=== PATIENT | male | born 1965 | race Caucasian/White ===

== ENCOUNTER 2024-03-02 09:27 | Inpatient (IN) | payer OTHER ==
[~2024-03-02] VITALS: Ht 167.6 cm; Wt 99.5 kg
[2024-03-02] MEDS ORDERED: Morphine Sulfate 4 MG/1 ML Injection IV ONE (09:35)
[2024-03-02] MEDS ORDERED: Diphth,Pertuss(Acell),Tet Vac 0.5 ML VIAL IM ONE (09:35)
[2024-03-02 09:48] LABS: BASOPHILS ABSOLUTE AUTO 0.05 K/mm3 (0.00-0.23); BASOPHILS PERCENT AUTO 1 % (0-2); EOSINOPHILS ABSOLUTE AUTO 0.09 K/mm3 (0.00-0.68); EOSINOPHILS PERCENT AUTO 1 % (0-6); Hematocrit 43.5 % (37.0-53.0); Hemoglobin 15.9 g/dL (13.5-17.5); IMMATURE GRAN ABSOLUTE AUTO 0.07 K/mm3 (0.00-0.10); IMMATURE GRAN PERCENT AUTO 1 % (0-1); LYMPHOCYTES ABSOLUTE AUTO 4.51 K/mm3 (0.84-5.20); LYMPHOCYTES PERCENT AUTO 45 % (21-46); MONOCYTES ABSOLUTE AUTO 1.04 K/mm3 (0.16-1.47); MONOCYTES PERCENT AUTO 11 % (4-13); Mean Corpuscular HGB 35.3 pg (26.0-34.0); Mean Corpuscular HGB Conc 36.6 g/dL (31.5-36.5); Mean Corpuscular Volume 97 fL (80-100); Mean Platelet Volume 11.4 fL (9.1-12.4); NEUTROPHILS ABSOLUTE AUTO 4.19 K/mm3 (1.96-9.15); NEUTROPHILS PERCENT AUTO 42 % (41-73); Platelet Count 184 K/mm3 (150-400); RDW Coefficient Variation 11.9 % (11.7-14.2); RDW Standard Deviation 42.5 fL (35.1-46.3); White Blood Cell Count 9.95 K/mm3 (4.00-11.30)
[2024-03-02 10:00] LABS: Prothrombin Time Results 10.7 Sec (9.7-11.5)
[2024-03-02 10:09] LABS: Alanine Aminotransfer (ALT/SGP 136 U/L (12-78); Albumin, Blood 3.9 g/dL (3.4-5.0); Albumin/Globulin Ratio 0.9 (0.8-1.8); Alk Phos 99 U/L (50-136); Anion Gap 11 mmol/L (3-11); Aspartate Aminotrans (AST/SGOT 101 U/L (12-37); Bilirubin, Total 0.5 mg/dL (0.1-1.0); Blood Urea Nitrogen 20 mg/dL (8-24); Bun/Creatinine Ratio 18.7 (12.0-20.0); CO2, Blood 23 mmol/L (21-32); Chloride, Blood 109 mmol/L (98-108); Creatinine, Blood 1.07 mg/dL (0.60-1.20); Ethanol (Alcohol), Blood, Med <3 mg/dL; Globulin, Blood 4.2 g/dL (2.2-4.0); Glomerular Filtration Rate 81 (60-); Glucose, Blood 180 mg/dL (70-99); Sodium, Blood 139 mmol/L (136-145); Total Protein, Blood 8.1 g/dL (6.4-8.2)
[2024-03-02] MEDS ORDERED: HYDROmorphone HCl/Pf 1MG SYR IV ONE ×2 (10:50→12:15)
[2024-03-02] MEDS ORDERED: CeFAZolin Sodium 2,000 MG in NS 100 ML IV ONE (10:55)
[2024-03-02] MEDS ORDERED: Ketorolac Tromethamine 30mg Vial IV ONE (11:35)
[2024-03-02] MEDS ORDERED: Methocarbamol 500 MG Tab PO ONE (11:35)
[2024-03-02] MEDS ORDERED: Lidocaine 5% Ointment 35 gm TOP ONE (12:15)
[2024-03-02 12:33] LABS: Source, Urine Clean Catch
[2024-03-02] MEDS ORDERED: FentaNYL Citrate 50 MCG/ML 2 ML Injection IV PRN ×3 (12:35→22:10)
[2024-03-02] MEDS ORDERED: Lactated Ringer's 1,000 ML IV SCH (12:35)
[2024-03-02] MEDS ORDERED: Ondansetron HCl 2 MG / ML 2ML Vial IV PRN ×2 (12:35→22:10)
[2024-03-02 12:39] LABS: Appearance, Urine Clear (Clear); Bilirubin, Urine Neg (Neg); Blood, Urine Neg (Neg); Color, Urine Yellow (P-Yellow); Glucose Qualitative, Urine Neg (Neg); Ketones, Urine Neg (Neg); Leukocyte Esterase, Urine Neg (Neg); Nitrite, Urine Neg (Neg); Protein, Urine Neg (Neg); Specific Gravity, Urine 1.015 (1.003-1.022); Urobilinogen, Urine NORM (Normal)
[2024-03-02 13:18] LABS: U Amphetamine Screen Not Detected; U Barbituate Screen Not Detected; U Benzodiazapine Screen Not Detected; U Cocaine Screen Not Detected; U Methadone Screen Not Detected; U Methamphetamine Screen Not Detected
[2024-03-02 13:19] LABS: U Buprenorphine Screen Not Detected; U Cannabinoids Screen Not Detected; U Opiates Screen DETECTED; U Oxycodone Screen Not Detected; U Phencyclidine Screen Not Detected
[2024-03-02 17:15] VITALS: BP 125/72
--- NOTE | 2024-03-02 18:25 | NUR ---
SHIFT SUMMARY PT HAS REMAINED VERY PAINFUL SINCE ARRIVAL TO FLOOR. LEG ELEVATED ON PILLOW. LARGE ABRASION TO R UPPER ARM AND FOREARM. SMALL LACERATION TO R FORHEAD ABOVE EYE. PT CONTINUES TO BE NPO FOR POSSIBLE PROCEDURE. REMAINS ON ROOM AIR. VSS. PT REPORTS SOME INTERMITTENT PAIN TO LOWER BACK AND LEFT SHOULDER SINCE ARRIVAL TO UNIT. PT CALLS APPROPRIATLY.
[2024-03-02 19:21] VITALS: BP 146/81
[2024-03-02] MEDS ORDERED: Dexamethasone Sod Phos 10 MG/ML 1ML VIAL ONE ×2 (20:34→22:08)
[2024-03-02] MEDS ORDERED: SuccINYLCHOLINE Chloride 100 MG/5 ML 5MLSYR ONE (20:34)
[2024-03-02] MEDS ORDERED: Ondansetron HCl 2 MG / ML 2ML Vial ONE ×2 (20:34→22:08)
[2024-03-02] MEDS ORDERED: FentaNYL Citrate 50 MCG/ML 2 ML Injection ONE ×2 (20:34→23:33)
[2024-03-02] MEDS ORDERED: Rocuronium Bromide 10 MG/ML 5ML Injection IV ONE (20:34)
[2024-03-02] MEDS ORDERED: propofoL 20 ML IV ONE (20:34)
[2024-03-02] MEDS ORDERED: Docusate Sodium 100 MG Cap PO SCH (21:00)
[2024-03-02] MEDS ORDERED: Ropivacaine 0.5% HCl/Pf 5 MG/ML 20ML VIAL ONE (21:36)
[2024-03-02] MEDS ORDERED: Ketorolac Tromethamine 30mg Vial ONE (22:08)
[2024-03-02] MEDS ORDERED: Metoclopramide HCl 5MG / ML 2ML Vial IV PRN (22:10)
[2024-03-02] MEDS ORDERED: Meperidine HCl 50 MG/ML 1ML Injection IV PRN (22:10)
[2024-03-02] MEDS ORDERED: HYDROmorphone HCl/Pf 1MG SYR IV PRN (22:10)
[2024-03-02] MEDS ORDERED: Morphine Sulfate 4 MG/1 ML Injection IV PRN (22:10)
[2024-03-02] MEDS ORDERED: HydrALAZINE HCl 20 MG / ML 1ML Vial IV PRN (22:15)
[2024-03-02] MEDS ORDERED: Albuterol 2.5 MG/3 ML VIAL INH PRN (22:15)
[2024-03-02] MEDS ORDERED: Prochlorperazine Edisylate 10 mg Vial IV PRN (22:15)
[2024-03-02] MEDS ORDERED: CeFAZolin Sodium 1000 mg Vial ONE (22:24)
[2024-03-02] MEDS ORDERED: NS IV ONE (22:25)
[2024-03-02] MEDS ORDERED: GENTAMICIN SULFATE IV ONE (22:25)
[2024-03-03] VITALS (14 sets, daily range): BP systolic 129–185; BP diastolic 78–97
[2024-03-03 05:50] LABS: Albumin, Blood 3.5 g/dL (3.4-5.0); Albumin/Globulin Ratio 0.9 (0.8-1.8); Bun/Creatinine Ratio 21.4 (12.0-20.0); Calcium, Blood 8.2 mg/dL (8.5-10.1); Creatinine, Blood 1.03 mg/dL (0.60-1.20); Potassium, Blood 4.2 mmol/L (3.5-5.5); Total Protein, Blood 7.5 g/dL (6.4-8.2)
[2024-03-03] MEDS ORDERED: HYDROcodone 5-APAP 325 TAB PO PRN (09:40)
[2024-03-03] MEDS ORDERED: Lactated Ringer's 1,000 ML IV SCH (09:40)
--- NOTE | 2024-03-03 16:00 | NUR ---
SHIFT SUMMARY POD 1 I&D R KNEE PT REPORTS PAIN SIGNIFICANTLY IMPROVED TODAY. HE HAS DECLINED PAIN MEDS DURING SHIFT. CALLING APPROPRIATLY. TOLERATING DIET. IMMOBILIZER REMAINS IN PLACE, DRESSING CDI. PT WILL POSSIBLY NEED FURTHER WASHOUTS.
--- NOTE | 2024-03-03 20:10 | NUR ---
IN ROOM TO SPEAK W PT.
[2024-03-04 04:43] VITALS: BP 125/69
--- NOTE | 2024-03-04 06:33 | NUR ---
SHIFT SUMMARY ASSUMED CARE OF PT ROUGHLY 0300 FROM EZEQUIEL Guillory RN. POD 2-I&D RLE. PT REPORTS SIGNIFICANT 8/10 PAIN IN RLE & L HIP/LOW BACK & FLANK AREA. MEDICATED 1x W/50MCG IV FENT & 2HR LATER PT STATING PAIN LEVEL HAD INCREASED TO 9/10, THEREFORE MEDICATED W/50MCG IV FENTANYL & 2 TABS PO NORCO, PT HAS BEEN RESTING SINCE. VSS. PT ABLE TO MAKE NEEDS KNOWN. IND W/URINAL. CALL LIGHT IN REACH.
[2024-03-04 07:04] VITALS: BP 133/74
[2024-03-04 15:40] VITALS: BP 155/78
[2024-03-04] MEDS ORDERED: Piperacillin/Tazobactam Sod 3.375 GM in NS 100 ML IV SCH (18:15)
--- NOTE | 2024-03-04 18:15 | NUR ---
SHIFT SUMMARY POD2 I&D RLE WOUND VAC/IMMOBILIZER ON; PLAN FOR I&D MONDAY, NPO MIDNOC, ABX STARTING TONIGHT. A&OX4, VSS/RA/BIOX, LIBRADO PO, VOIDING/URINAL, STAND PIVOT/UP TO CHAIR/REPOSITIONS SELF, PAIN MANAGED WITH NORCO 10 MG X2 THIS SHIFT. WILL REPORT TO ONCOMING ARRON GANDHI.
[2024-03-04] MEDS ORDERED: Vancomycin HCL 2,000 MG in NS 500 ML IV ONE (18:30)
[2024-03-04 19:34] VITALS: BP 134/69
[2024-03-05] VITALS (17 sets, daily range): BP systolic 125–177; BP diastolic 69–95
--- NOTE | 2024-03-05 04:12 | NUR ---
SHIFT SUMMARY POD 3 I&D OF L KNEE PT SLEPT T/O THE NIGHT. PAIN MANAGED PER EMAR. WOUND VAC IS COMPRESSED AND DRAINING SS FLUID, LEG IMMOBILIZER ON. PT NPO AT MIDNIGHT FOR ANOTHER I&D OF L KNEE TODAY. VSS. NO OTHER CONCERNS AT THIS TIME, CALL LIGHT WITHIN REACH
[2024-03-05] MEDS ORDERED: Vancomycin HCL 1,250 MG in NS 250 ML IV SCH (08:00)
[2024-03-05] MEDS ORDERED: Lactated Ringer's 1,000 ML IV SCH (11:45)
--- NOTE | 2024-03-05 13:06 | NUR ---
PT TAKEN TO [facility]
--- NOTE | 2024-03-05 13:23 | NUR ---
History, Chart, Medications and Allergies reviewed before start of procedure. Pre-Op teaching done. Pt verbalizes understanding. Patient confirms NPO status and agrees with scheduled surgery.
[2024-03-05] MEDS ORDERED: propofoL 20 ML IV ONE (14:19)
[2024-03-05] MEDS ORDERED: Dexamethasone Sod Phos 10 MG/ML 1ML VIAL ONE (14:20)
[2024-03-05] MEDS ORDERED: FentaNYL Citrate 50 MCG/ML 2 ML Injection ONE (14:20)
[2024-03-05] MEDS ORDERED: Ondansetron HCl 2 MG / ML 2ML Vial ONE (14:20)
[2024-03-05] MEDS ORDERED: Midazolam HCl 1MG / ML 2ML Vial ONE (14:21)
[2024-03-05] MEDS ORDERED: Metoclopramide HCl 5MG / ML 2ML Vial ONE (15:07)
[2024-03-05] MEDS ORDERED: HYDROmorphone HCl/Pf 1MG SYR ONE ×2 (15:15→16:11)
--- NOTE | 2024-03-05 17:07 | NUR ---
SHIFT SUMMARY SECOND I&D RLE - RETURNED FROM O.R. APPROX 1630, WOUND VAC, 50% WB WITH IMMOB ON, ABX PER EMAR, PAIN MANAGED WITH NORCO 10 MG, A&OX4, VSS/1LNC(POSTOP), BIOX ON, LIBRADO PO, AWAITING POST OP VOID, REPOSIIONS SELF. WILL REPORT TO ONCOMING ARRON GANDHI.
[2024-03-06 04:06] VITALS: BP 141/77
--- NOTE | 2024-03-06 04:28 | NUR ---
SHIFT SUMMARY POD 1 REPEAT I&D R KNEE PT ABLE TO SLEEP DURING THE NIGHT. PAIN MANAGED PER EMAR. PT TOLERATING PO INTAKE. VOIDING. PT HAS IMMOBILIZER ON RLE, SUSAN WRAP AND WOUND VAC ON R KNEE. ALL ARE C/D/I. PLAN FOR PT TO HAVE ONE MORE I&D ALONG WITH ON ORIF TOMORROW. VSS. NO OTHER CONCERNS AT THIS TIME. CALL LIGHT WITHIN REACH
[2024-03-06 07:13] VITALS: BP 104/82
[2024-03-06 07:43] LABS: Vancomycin, Trough 9.7 ug/mL (5.0-10.0)
[2024-03-06 16:54] VITALS: BP 174/83
--- NOTE | 2024-03-06 17:59 | NUR ---
SHIFT SUMMARY POD1 R KNEE I&D #2, A/OX4, VSS, TOLERATING PO, ABLE TO AMBULATE USING FWW AND GB AND SBA, PLAN FOR AN ADDITIONAL I&D THEN AN ORIF. NO ACUTE EVENTS THIS SHIFT, CALL LIGHT IN REACH.
[2024-03-06 19:47] VITALS: BP 159/91
[2024-03-07] VITALS (14 sets, daily range): BP systolic 118–168; BP diastolic 63–100
--- NOTE | 2024-03-07 04:54 | NUR ---
SHIFT SUMMARY POD 2 REPEAT I&D OF R KNEE PT RESTING DURING THE SHIFT. PAIN MANAGED PER EMAR. PT HAS BEEN NPO SINCE MD FOR SURGERY TODAY. DRESSING TO R KNEE IS C/D/I. WOUND VAC IS COMPRESSED AND STILL HAVING OUTPUT. PT ABLE TO WIGGLES TOES AND DENIES N/T TO R EXT. VSS. NO OTHER CONCERNS AT THIS TIME, CALL LIGHT WITHIN REACH
[2024-03-07] MEDS ORDERED: Bupivacaine 0.5% Inj 10 ML Vial ONE ×2 (13:30→13:45)
[2024-03-07] MEDS ORDERED: Lactated Ringer's 1,000 ML IV SCH (13:30)
--- NOTE | 2024-03-07 13:44 | NUR ---
History, Chart, Medications and Allergies reviewed before start of procedure. Pre-Op teaching done. Pt verbalizes understanding. Patient confirms NPO status and agrees with scheduled surgery.
[2024-03-07] MEDS ORDERED: Lidocaine 2%-Epineph 1:200000 20 ML SDV ONE (13:56)
[2024-03-07] MEDS ORDERED: Bupivacaine 0.5% HCl 5 MG/ML 30MLVIAL ONE (13:56)
[2024-03-07] MEDS ORDERED: Ondansetron HCl 2 MG / ML 2ML Vial ONE (13:56)
[2024-03-07] MEDS ORDERED: Dexamethasone Sod Phos 10 MG/ML 1ML VIAL ONE (13:56)
[2024-03-07] MEDS ORDERED: FentaNYL Citrate 50 MCG/ML 2 ML Injection ONE (13:56)
[2024-03-07] MEDS ORDERED: Midazolam HCl 1MG / ML 2ML Vial ONE (13:57)
[2024-03-07] MEDS ORDERED: propofoL 40 ML IV ONE (14:35)
[2024-03-07] MEDS ORDERED: HYDROmorphone HCl/Pf 1MG SYR ONE ×2 (15:03→16:24)
--- NOTE | 2024-03-07 19:21 | NUR ---
SHIFT SUMMARY POD0 I&D #3, A/OX4, VSS, TOLERATING PO, PAIN WELL MANAGED, CLEARED TO DC IN THE MORNING FROM [facility], PLAN TO F/U WITH [facility] AT HOME IF ARRANGEMENTS CAN BE MADE TO ACCOMODATE THIS. NO ACUTE EVENTS, POST OP VITALS STARTED.
[2024-03-07] MEDS ORDERED: Vancomycin HCL 1,500 MG in NS 250 ML IV SCH (20:00)
[2024-03-07] MEDS ORDERED: Lactobacil 2-S.Thermo-Bifido 1 1 Cap PO SCH (21:00)
[2024-03-08 04:14] VITALS: BP 136/74
[2024-03-08 07:46] VITALS: BP 137/72
[2024-03-08] MEDS ORDERED: Trimethoprim/Sulfamethoxazole DS Tab ONE (10:26)
[2024-03-08] MEDS ORDERED: Trimethoprim/Sulfamethoxazole DS Tab PO SCH (10:30)
--- NOTE | 2024-03-08 11:50 | NUR ---
DISCHARGE SUMMARY NO ACUTE CHANGES SINCE LAST NOTE. DAUGHTER & OTHER FAMILY MEMBER ARRIVED TO TRANSPORT PT. D/C INSTRUCTIONS & EDUCATION GIVEN TO FAMILY AND TO PT, VERBALIZE UNDERSTANDING. ADDITIONAL AQUACEL DRESSINGS IN PT PERSONAL BELONINGS c INSTRUCTIONS ON DRESSING CHANGES. ICE PACKS GIVEN TO PT FOR COLD APPLICATION DURING TRANSPORT. FAMILY AIDED IN DRESSING PT IN HOME CLOTHING. PT TRANSFERED TO WHEELCHAIR USING FWW & IMMOBILIZER. D/C'd WITH FWW & IMMOBILIZER & ADDITIONAL SUSAN WRAP. IV REMOVED. PT REPORTS NO PERSONAL BELONGINGS IN ROOM. D/C'd TO POV DRIVEN BY DAUGHTER VIA WHEELCHAIR.
[2024-03-08] MEDS ORDERED: Cyclobenzaprine HCl 10 MG Tab PO PRN (13:50)
[2024-03-08 15:28] VITALS: BP 166/85
--- NOTE | 2024-03-08 16:36 | NUR ---
SHIFT SUMMARY PT STRUGGLING WITH PAIN MANAGEMENT TODAY. 2 NORCO/FENTANYL/MUSCLE RELAXERS PER ORDERS. ENCOURAGING ELEVATION AND ICE. ORDER FOR PT KEEP IMMOBILIZER IN PLACE WHEN OOB. PT NOT KEEPING IMMOBILIZER IN PLACE AND DECLINING TO USE FWW WHEN OOB. EDUCATING ON PT SAFETY AND ENCOURAGING FWW + IMMOBILIZER TO R LEG WHEN OOB. WORKED WITH PT/OT. ORAL ABX PER ORDERS. CARE MANAGEMENT WORKING ON DISCHARGE PLANNING. HARD RX FOR BACTRIM DS + PERCOCET IN CHART. VSS. USES CALL LIGHT APPROPRIATELY.
[2024-03-08] MEDS ORDERED: SULTRIDS PO (17:05)
[2024-03-08] MEDS ORDERED: Percocet 5-3251 EACH PO (17:05)
--- NOTE | 2024-03-08 18:02 | NUR ---
DRAINLAYER FILLED PT RX BACTRIM DS + PERCOCET AND GIVEN TO PT TO TAKE HOME AT DISCHARGE.
[2024-03-08 19:42] VITALS: BP 157/79
--- NOTE | 2024-03-08 22:00 | NUR ---
SHIFT ASSESSMENT/SUMMARY POD 1 R KNEE ORIF. PT A&0 x4, PRIMARY LANGUAGE NOT YORUBA, MINOR CULTURAL BARRIERS WITH COMMUNICATION. PT VERBALIZES UNDERSTANDING OF INSTRUCTION, PT THEN DEMONSTRATES ACTIVITY WITHOUT ADHERING TO EDUCATION. VSS. TOLERATING ORALS. VOIDS USING URINAL AT BEDISDE. NO BM DURING MY CARE FOR PT. PT REPORTS PAIN CONSISTENTLY 10/10 WITH IV AND ORAL PAIN MEDICATION PER EMAR. PT EDUCATED ON PAIN MANAGEMENT AND ENCOURAGED TO STAY AT HOSPITAL R/T IV PAIN MED NECESSITY TO RELIEVE PAIN. PT PERSISTENT ABOUT DISCHARGE. PT EDUCATED ON ELEVATION & ICE FOR RLE. R KNEE DRESSING CHANGED. POST-OP GAUZE/WET DRESSING REMOVED. SITE CLEANED WITH WOUND [employer] DEVELOPER. LIGHT SEROSANG DRAINAGE NOTED ON MIDDLE PORTION OF INCISION. ANTONIA OVER INCISION C/D/I. AQUACEL x2 PLACED OVER INCISION. SUSAN WRAP REPLACED OVER KNEE. IMMOBILIZER PLACED ON RLE. PT EDUCATED ON NEED FOR IMMOBILIZER DURING ALL AMBULATION. PT AMBULATION ORDERS FOR FWW c IMMOBILIZER. PT REQUIRES REMINDERS FOR PROPER AMBULATION TECHNIQUE. PT WILL D/C WHEN DAUGHTER ARRIVES TO DRIVE PT HOME TO [place].
== END 2024-03-08 23:47 | disposition home or self-care (01) | DRG 489 ==
LOC: ER 09:27 → EDBD 09:27 → SURS 12:33
PROVIDERS: Orthopaedic Surgery; Student in an Organized Health Care Education/Training Program; ADMIT Surgery
PROC: 0QBD0ZZ Excision of Right Patella, Open Approach (ICD-10-PCS; principal; 2024-03-02 16:30)
PROC: 0QDD0ZZ Extraction of Right Patella, Open Approach (ICD-10-PCS; 2024-03-07)
DX: S82.001B Unspecified fracture of right patella, initial encounter for open fracture type I or II (principal); S00.83XA Contusion of other part of head, initial encounter; S00.81XA Abrasion of other part of head, initial encounter; S40.812A Abrasion of left upper arm, initial encounter; S40.811A Abrasion of right upper arm, initial encounter; S80.811A Abrasion, right lower leg, initial encounter; S80.812A Abrasion, left lower leg, initial encounter; V03.10XA Pedestrian on foot injured in collision with car, pick-up truck or van in traffic accident, initial encounter
CPT/HCPCS: 36415; 70450; 71260; 72125; 73560-RT; 73620; 73700; 74177; 80053; 80202; 81003; 82565; 82947; 83690; 85025; 85610; 90471; 90715; 93005; 93010; 94762; 96365-59; 96375-59; 96376-59; 97110; 97116; 97162; 97530; 99285-25; A9270; J0330; J0690; J1100; J1170; J1885; J2250; J2270; J2405; J2543; J2704; J2765; J2795; J3010; J3370; J7040; J7050; J7120; Q9967